=== PATIENT | female | born 1950 | race Caucasian/White ===

== ENCOUNTER 2017-05-27 10:40 | Outpatient (CLI) | payer BC ==
--- NOTE | 2017-05-27 12:39 | RAD ---
CHEST TWO VIEW: HISTORY: Cough. COMPARISON: None. FINDINGS: The heart is mildly prominent. No pneumothorax or effusion. There is scarring in the lung apices. Mild S-shaped scoliosis of the spine. IMPRESSION: 1. The cardiac silhouette is at the upper limits in size. 2. No evidence of pneumonia. POS: [facility]
== END 2017-05-27 10:41 | disposition home or self-care (01) ==
LOC: SCSRAD 10:40
PROVIDERS: ATTEND Family Medicine
DX: J10.1 Influenza due to other identified influenza virus with other respiratory manifestations (principal); I51.7 Cardiomegaly
CPT/HCPCS: 71020

== ENCOUNTER 2020-01-14 11:19 | Inpatient (IN) | payer BC ==
[2020-01-14] MEDS ORDERED: Piperacillin/Tazobactam 3.375 GM in Sodium Chloride 0.9% 100 ML IVPB SCH (12:00)
[2020-01-14] MEDS ORDERED: Ondansetron ODT 4 MG TAB PO PRN (12:20)
[2020-01-14] MEDS ORDERED: Ondansetron PF 4 MG/2 ML Vial IVP PRN (12:20)
--- NOTE | 2020-01-14 13:07 | PDOC.HHP ---
Hospitalist HPI - History of Present Illness Diverticulitis History of Present Illness: Patient reports she developed lower abdominal pain about three months ago. She described it as "pinching, grabbing, stabbing" pain. When it persisted and got worse, she presented to her physician. CT scan confirmed diverticulitis. She was given Cipro and Flagyl. That did not resolve the symptoms and she had some nausea with that. She was then given Augmentin, but that caused nausea and vomiting. She was changed to amoxil and that also caused nausea and vomiting. She did have a follow up CT that appeared to show some improvement and she underwent colonoscopy today with Dr. Arias. He saw diverticulosis with an area of erythema and purulent effluent from the orifice of a diverticulum. She is being admitted for diverticulitis which has failed OP treatment in a patient who cannot tolerate oral abx due to N/V. She does not feel too bad at the moment. She has been able to eat and drink through this. She describes her stools as "greasy" throughout this episode. Hospitalist ROS - Review of Systems Constitutional: denies: fever, chills Respiratory: denies: cough, shortness of breath Gastrointestinal: reports: nausea, vomiting, abdominal pain. denies: diarrhea, constipation All other systems reviewed; all pertinent +/- noted in HPI/Subj Hospitalist History - Past Medical History Source: patient Cardiac: reports: no pertinent history - Past Surgical History Past Surgical History: reports: Hysterectomy - Family History Family History: reports: no pertinent history - Social History Smoking Status: Never smoker Alcohol: reports: None Drugs: reports: none Other Social History: . Full code. would be her surrogate decision maker should that be necessary. - Exam General Appearance: NAD, awake alert Eye: PERRL, anicteric sclera Heart: RRR, no murmur, no gallops, no rubs, normal peripheral pulses Respiratory: CTAB, no wheezes, no rales, no ronchi, normal chest expansion, no tachypnea, normal percussion Gastrointestinal: soft, non-distended, normal bowel sounds, no palpable masses, no hepatomegaly, no splenomegaly, no bruit Gastrointestinal - other findings: Modest TTP in left pelvis. No guarding. Extremities: no cyanosis, no clubbing, no edema Skin: normal turgor, no lesions, no rashes Neurological: no focal deficits Musculoskeletal: normal tone, normal strength, no muscle wasting Psychiatric: normal affect, normal behavior, A&O x 3 Hospitalist H&P A/P - Problem (1) Diverticulitis Code(s): K57.92 - DVTRCLI OF INTEST, PART UNSP, W/O PERF OR ABSCESS W/O BLEED Status: Acute - Plan Plan: Diverticulitis: Failed several attempts at outpatient treatment. Intolerant to oral abx due to N/V. IV Zosyn. She has not had an allergic reaction to PCN, just nausea/vomiting with the pills. Discussed with her nurse. Will need to watch closely after administering the abx for and SE's. IVF. Regular diet with stool softeners. Consult GI.
[2020-01-14] MEDS ORDERED: Iopamidol 370 76% 100 ML VIAL ONE (13:46)
[2020-01-14] MEDS: Sodium Chloride 0.9% 1,000 ML IV SCH (14:02)
[2020-01-14 14:17] VITALS: BMI 28.1
[2020-01-14 14:20] LABS: #Eosinphils 0.1 thou/uL (0.0-0.7); #Lymphocytes 1.5 thou/uL (1.20-3.40); #Monocytes 0.4 thou/uL (0.11-0.59); #Neutrophils 2.7 thou/uL (1.40-6.50); %Basophils 0.7 % (0.0-1.0); %Eosinophils 1.2 % (0.0-10.0); %Lymphocytes 32.1 % (21.0-51.0); %Monocytes 8.8 % (0.0-10.0); %Neutrophils 57.2 % (42.0-75.0); Hemoglobin 14.6 g/dL (12.0-16.0); Mean Corpuscular HGB CONC 33.2 g/dL (32.0-36.0); Mean Corpuscular Hemoglobin 30.4 pg (27.0-31.0); Mean Corpuscular Volume 91.5 fL (78.0-98.0); Mean Platelet Volume 8.1 fL (7.4-10.4); Platelet Count 237 thou/uL (130-400); RBC Distribution Width 13.1 % (11.5-14.5); Red Blood Cell (RBC) Count 4.81 mill/uL (4.20-5.40); White Blood Cell (WBC) Count 4.8 thou/uL (4.8-10.8)
[2020-01-14 14:39] LABS: ALT (SGPT) 23 U/L (8-55); AST (SGOT) 23 U/L (5-34); Albumin 4.4 g/dL (3.4-4.8); Alkaline Phosphatase 72 U/L (40-110); Anion Gap 11 mmol/L (10-20); BUN (Urea Nitrogen) 5 mg/dL (9.8-20.1); Bilirubin, Total 0.6 mg/dL (0.2-1.2); Calc. Creatinine Clearance 82 mL/min (70-130); Calcium 9.3 mg/dL (7.8-10.44); Carbon Dioxide 28 mmol/L (23-31); Chloride 105 mmol/L (98-107); Estimated GFR-MDRD 75; Globulin 3.2 g/dL (2.4-3.5); Glucose 104 mg/dL (80-115); Potassium 3.8 mmol/L (3.5-5.1); Protein, Total 7.6 g/dL (6.0-8.3); Sodium 140 mmol/L (136-145)
[2020-01-14] MEDS ORDERED: Clindamycin/D5W 900 MG in Premix Bag 1 BAG IVPB SCH (17:00)
[2020-01-14] MEDS ORDERED: cefTRIAXone\\ROCEPHIN 1 GM in Sodium Chloride 0.9% 100 ML IVPB SCH (18:00)
--- NOTE | 2020-01-14 18:23 | PDOC.EVN ---
Event Note - Event Note Event Note: Patient seen by Dr. Jean who advised to continue with Zosyn. RN notified. Only 5mLs of Clindamycin infused. She did not receive Rocephin. Both have been discontinued. Zosyn due at 20:00 (last dose at 14:00). Dr. Olivas aware of plan as above.
--- NOTE | 2020-01-14 18:35 | CON ---
DATE OF CONSULTATION: 01/14/2020 REASON FOR CONSULTATION: Acute uncomplicated diverticulitis. CONSULTING PROVIDER: Blane Olivas MD HISTORY OF PRESENT ILLNESS: The patient is a 69-year-old female with no significant past medical history until her diagnosis of diverticulitis a few months ago, presenting with complaints of lower abdominal pain and abnormal GI imaging. She states that she began having increased left lower quadrant abdominal pain, that started in 06/2019. The pain was initially intermittent, characterized as a sharp/stabbing type sensation and did not radiate to the remainder of the abdomen. However, in 11/2019, she had acute worsening of this left lower quadrant abdominal pain, that prompted her to seek additional healthcare assistance at [facility]. There, she was initially diagnosed with diverticulitis based on CT imaging showing the presence of the condition. She was subsequently placed on ciprofloxacin and Flagyl, but the patient was unable to tolerate the regimen secondary to nausea and vomiting associated with these medications. She was subsequently changed to Augmentin, but again had adverse reactions including nausea and vomiting. Ultimately, recently, she was changed to amoxicillin, but again also this caused nausea and vomiting. On repeat evaluation in the GI Clinic, she continued to have abdominal pain, but now located in the right lower quadrant, and with the knowledge of a recent CT obtained at [facility] showing resolution of her diverticulitis, she subsequently underwent colonoscopy on 01/14/2020. During that particular procedure, she has significant diverticulosis located all through her colon with an increased density of the diverticula seen in the descending and sigmoid colons; however, in the sigmoid colon, one particular diverticulum was noted to have purulence emanating from the diverticulum itself as well as peridiverticular erythema and edema consistent with acute diverticulitis. With her failures to most outpatient regimens secondary to adverse reactions of nausea and vomiting, she was then admitted to the hospital for IV management of this condition. Currently, she states that she is doing well with no acute events or problems. However, she states that with the earlier administration of Zosyn, she had an increasing pressure type sensation in her upper chest and throat without the sensation of shortness of breath, and shortly after the onset of these symptoms, she began to have involuntary shaking of her entire body for the next hour, which then slowly resolved. Otherwise, she denies any nausea, vomiting, fevers, chills, hematemesis, melena, hematochezia, diarrhea, constipation, or weight loss. REVIEW OF SYSTEMS: A 10-category review of systems was obtained with all responses negative except for the pertinent positives as listed in HPI. PAST MEDICAL HISTORY: Diverticulitis. PAST SURGICAL HISTORY: Transvaginal hysterectomy. FAMILY HISTORY: Denies any GI malignancies. SOCIAL HISTORY: Denies any tobacco, alcohol, or illicit drug use. OUTPATIENT MEDICATIONS: Reviewed. ALLERGIES: NO KNOWN DRUG ALLERGIES. PHYSICAL EXAMINATION: VITAL SIGNS: Temperature 97.6, pulse 85, blood pressure 140/63, respiratory rate 18, and saturating 99% on room air. GENERAL: The patient was lying in bed, in no acute distress. Alert and oriented x4. HEENT: Normocephalic and atraumatic. Neck is supple. No JVD or scleral icterus noted. CARDIOVASCULAR: Regular rate and rhythm with no discernable murmurs, gallops, or rubs. RESPIRATORY: Clear to auscultation bilaterally with no discernable wheezes or rales. ABDOMEN: Normoactive bowel sounds. Soft, nondistended. Mild tenderness to palpation in the left upper quadrant. EXTREMITIES: No cyanosis, clubbing, or edema. LABORATORY DATA: CBC with a white blood cell count of 4.8, hemoglobin 14.6, hematocrit 44, and platelets 237. Chemistry with a sodium of 140, potassium 3.8, chloride 105, CO2 of 28, BUN 5, creatinine 0.76, and glucose 104. AST 23, ALT 23, alkaline phosphatase 72, total bilirubin 0.6, and albumin 4.4. IMAGING DATA: The patient underwent colonoscopy on 01/14/2020, which showed moderately severe pancolonic diverticulosis with evidence of diverticular spasm, peridiverticular erythema and edema in the sigmoid colon as well as purulent discharge from one particular diverticular opening, consistent with acute diverticulitis. ASSESSMENT AND PLAN: The patient is a 69-year-old female with past medical history of diverticulitis, presenting with continued uncomplicated diverticulitis. [id number] diverticulitis: The patient is presenting with a longstanding history of lower abdominal pain since 06/2019, for which the patient underwent CT scans of her abdomen in 11/2019, showing the presence of acute uncomplicated diverticulitis. She was subsequently placed on multiple appropriate antibiotic regimens, but could not tolerate any of these regimens due to significant nausea and vomiting associated with administration. She has had some clinical improvement with the most recent antibiotics, but colonoscopy earlier today showed the presence of purulence as well as peridiverticular erythema and narrowing of the colon, consistent with acute diverticulitis. At this time, given her failure to regimens including Cipro/Flagyl, Augmentin, amoxicillin/Flagyl, the patient would benefit from IV administration of antibiotics. However, earlier today, she experienced what appears to be an adverse reaction with administration of Zosyn, for which she has had similar reactions to amoxicillin in the past. At this point, it is unclear if this is an adverse effect versus a true allergic reaction to the medication. RECOMMENDATIONS: 1. Would continue with one additional dose of Zosyn 3.375 g and monitor the patient during administration for blood pressure, oxygen saturation, and any post-administrative reactions (for example, involuntary shaking). 2. If the patient has a reaction to the Zosyn, would transfer the patient to Bactrim 1 double-strength tablet b.i.d. plus metronidazole 500 mg t.i.d. or consider transferring the patient to meropenem 1 g every 8 hours. 3. Pain control per primary team. 4. Agree with placing the patient on a clear liquid diet and advancing as tolerated. 5. Continue IV fluid at 75 mL/hour as part of supplementation. We will continue to follow. Please call with any questions. Job ID: [id number]
--- NOTE | 2020-01-14 19:13 | CT ---
CT OF THE ABDOMEN AND PELVIS WITH IV CONTRAST INDICATION: Diverticulitis COMPARISON: None FINDINGS: ABDOMEN: Lung bases: Bibasilar atelectasis Liver: No focal lesion. Gallbladder: Normal appearing. Pancreas: Normal. Adrenal glands: Normal. Spleen: Normal. Kidneys and ureters: Normal. No hydronephrosis. Vasculature: There are mild vascular calcifications seen involving the visualized vasculature. Lymph nodes:No lymphadenopathy. Free fluid in abdomen:No free fluid is evident. PELVIS: Small and large bowel: There is colonic diverticula involving the sigmoid colon and distal descending colon with mild wall thickening and mild pericolonic inflammatory stranding. No drainable fluid collection is evident. Small bowel is of normal caliber. Appendix:Normal Bladder: Normal. Rectal and perirectal soft tissues:Normal. Reproductive structures: The uterus is not identified and may be surgically absent. Free fluid in pelvis: No free fluid is evident. Lymphadenopathy pelvis: No lymphadenopathy is evident. Osseous structures: There is diffuse osteopenia. No acute fracture or subluxation demonstrated. Ther e is scattered degenerative and osteoarthritic changes. Soft tissues:Normal. IMPRESSION: 1. Uncomplicated sigmoid and distal descending diverticulitis. No drainable fluid collection demonstr ated.
[2020-01-14] MEDS ORDERED: diphenhydrAMINE 50 MG/ML VIAL IVP PRN (20:00)
[2020-01-14] MEDS: Piperacillin/Tazobactam 3.375 GM in Sodium Chloride 0.9% 100 ML IVPB SCH (21:22)
[2020-01-15] MEDS: Piperacillin/Tazobactam 3.375 GM in Sodium Chloride 0.9% 100 ML IVPB SCH ×4 (03:17→20:10)
[2020-01-15] MEDS: Sodium Chloride 0.9% 1,000 ML IV SCH ×2 (03:19→15:19)
[2020-01-15] MEDS ORDERED: diphenhydrAMINE 50 MG/ML VIAL IVP SCH (03:30)
--- NOTE | 2020-01-15 06:06 | CON ---
DATE OF CONSULTATION: HISTORY OF PRESENT ILLNESS: Ms. Mckeon is a pleasant 69-year-old female, who I saw today in my office for a screening colonoscopy. She last had one about 10 years ago, which was normal. In the interim, she had had a bout of diverticulitis about 3 months ago in [place], where she now lives. This apparently was confirmed with a CAT scan. She was treated with antibiotics and then treated a couple of different times, but she really did not tolerate Flagyl, Augmentin or Cipro. She had persistent on and off pain and just malaise, and she had a rheumatologic workup at [facility] in [place], it was normal and then she had a CAT scan on January 09 that was normal. Apparently she was getting very nauseated with the Augmentin and even amoxil, could not tolerate that. More recently, she had been seen in our office and was having some mild tenderness, but again the CAT scan had been completely normal. She had had no fever or chills. Ultimately, a colonoscopy was performed and showed diverticulosis with an area of diverticulitis in the distal colon. We are going to retreat her as an outpatient, try to use different oral antibiotics, but in her difficulty with treatment and 3 other treatments as an outpatient with other physicians, but considered this a failed outpatient therapy. After endoscopy, she was a little bit more uncomfortable than before, but she could get up and walk around to the bathroom. She has had no dysuria, frequency, urgency, or any solid material in the urine. She has reported that her stools greasy Her CAT scan shows no pancreatic malignancy PAST MEDICAL HISTORY: Difficulty sleeping. PAST SURGICAL HISTORY: Hysterectomy. ALLERGIES: SHE DOES NOT HAVE ANY OVERT ANAPHYLACTIC LIKE ALLERGIES TO ANY MEDICINES. SHE DOES GET NAUSEA WITH FLAGYL AND WITH AMOXICILLIN. ALLERGIES TO SHELLFISH. SHE DID HAVE RECENT LEADITE HEATER EVALUATION WITH TRANSVAGINAL ULTRASOUND MEDICATIONS AT HOME: Ambien. SOCIAL HISTORY: Alcohol, none. Does not smoke. Exercises a few times per week. She works at the [employer] in [place], previously worked . FAMILY HISTORY: Negative for inflammatory bowel disease or colitis. REVIEW OF SYSTEMS: Negative for chest pain, shortness of breath, dyspnea on exertion, fever, chills, myalgias, or arthralgias. PHYSICAL EXAMINATION: VITAL SIGNS: weight 172. Respirations 16. GENERAL: She appears a little bit sallow HEENT: Oropharynx is moist. NECK: Supple. LUNGS: Clear. HEART: Regular, ABDOMEN: Mild tenderness in left lower quadrant without rebound or guarding. She is able to walk around without overt discomfort. EXTREMITIES: No clubbing, cyanosis, or edema. ASSESSMENT: Failed outpatient treatment with diverticulitis, on and off, oral antibiotics with incomplete courses for the last three months. She had a normal CAT scan in early December, but has a colonoscopy with findings of acute diverticulitis now. PLAN: We will admit her to the hospital, start on IV antibiotics. Re-image her abdomen to make sure there is no abscess or phlegmon and proceed from there. Dr. Brooke is the hospital I have discussed the case with the admitting physician. Job ID: [id number]
[2020-01-15 06:23] LABS: #Eosinphils 0.1 thou/uL (0.0-0.7); #Lymphocytes 1.4 thou/uL (1.20-3.40); #Monocytes 0.4 thou/uL (0.11-0.59); #Neutrophils 2.5 thou/uL (1.40-6.50); %Basophils 0.7 % (0.0-1.0); %Eosinophils 2.7 % (0.0-10.0); %Lymphocytes 30.9 % (21.0-51.0); %Monocytes 9.2 % (0.0-10.0); %Neutrophils 56.5 % (42.0-75.0); Hemoglobin 13.3 g/dL (12.0-16.0); Mean Corpuscular HGB CONC 32.6 g/dL (32.0-36.0); Mean Corpuscular Hemoglobin 30.1 pg (27.0-31.0); Mean Corpuscular Volume 92.1 fL (78.0-98.0); Mean Platelet Volume 7.8 fL (7.4-10.4); Platelet Count 189 thou/uL (130-400); RBC Distribution Width 13.1 % (11.5-14.5); Red Blood Cell (RBC) Count 4.42 mill/uL (4.20-5.40); White Blood Cell (WBC) Count 4.5 thou/uL (4.8-10.8)
[2020-01-15 06:44] LABS: ALT (SGPT) 18 U/L (8-55); AST (SGOT) 18 U/L (5-34); Albumin 3.8 g/dL (3.4-4.8); Alkaline Phosphatase 59 U/L (40-110); Anion Gap 10 mmol/L (10-20); BUN (Urea Nitrogen) 6 mg/dL (9.8-20.1); Bilirubin, Total 0.8 mg/dL (0.2-1.2); Calc. Creatinine Clearance 76 mL/min (70-130); Calcium 8.6 mg/dL (7.8-10.44); Carbon Dioxide 28 mmol/L (23-31); Chloride 107 mmol/L (98-107); Estimated GFR-MDRD 69; Globulin 2.7 g/dL (2.4-3.5); Glucose 98 mg/dL (80-115); Potassium 3.8 mmol/L (3.5-5.1); Protein, Total 6.5 g/dL (6.0-8.3); Sodium 141 mmol/L (136-145)
[2020-01-15] MEDS: Enoxaparin Sodium 40 MG/0.4 ML SYRINGE SC SCH (08:11)
--- NOTE | 2020-01-15 11:24 | PDOC.HOSPP ---
- Subjective Encounter Date: 01/15/20 Encounter Time: 11:00 Subjective: no abd pain or nausea is tolerating liq diet - Objective Vital Signs & Weight: Vital Signs (12 hours) Temp Pulse Resp BP BP Pulse Ox 01/15/20 08:00 97.8 F 70 16 127/74 96 01/15/20 07:21 98 01/15/20 03:59 98.4 F 66 16 121/63 97 01/14/20 23:52 98.7 F 70 16 121/58 L 96 Weight Weight 164 lb I&O: 01/14/20 01/15/20 01/16/20 06:59 06:59 06:59 Intake Total 1100 1320 Output Total 500 Balance 1100 820 Result Diagrams: 01/15/20 06:01 01/15/20 06:01 Hospitalist ROS - Medication Medications: Active Medications Generic Name Dose Route Start Last Admin Trade Name Freq PRN Reason Stop Dose Admin Diphenhydramine HCl 25 mg 01/14/20 20:00 01/14/20 20:29 Benadryl IVP 25 mg Q8H PRN Administration BEFORE ZOSYN Enoxaparin Sodium 40 mg 01/15/20 09:00 01/15/20 08:11 Lovenox SC Not Given 0900 CATHLEEN Sodium Chloride 1,000 mls @ 75 mls/hr 01/14/20 12:30 01/15/20 03:19 Normal Saline 0.9% IV 1,000 mls .[id number] CATHLEEN Administration Piperacillin Sod/Tazobactam 100 mls @ 200 mls/hr 01/14/20 20:00 01/15/20 08: 10 Sod 3.375 gm/ Sodium Chloride IVPB 100 mls 0200,0800,1400,2000 CATHLEEN Administration - Exam General Appearance: awake alert Eye: PERRL, anicteric sclera ENT: no oropharyngeal lesions, moist mucosa Neck: supple, no JVD Heart: RRR, no murmur Respiratory: no wheezes, no rales Gastrointestinal: soft, non-tender, non-distended, normal bowel sounds, no guarding, no rigidity Extremities: no cyanosis, no edema Neurological: cranial nerve grossly intact, no focal deficits Psychiatric: normal affect, A&O x 3 Hosp A/P (1) Abdominal pain Code(s): R10.9 - UNSPECIFIED ABDOMINAL PAIN Status: Resolved Qualifiers: Abdominal location: unspecified location Qualified Code(s): R10.9 - Unspecified abdominal pain (2) Diverticulitis Code(s): K57.92 - DVTRCLI OF INTEST, PART UNSP, W/O PERF OR ABSCESS W/O BLEED Status: Acute - Plan is on zosyn gentle iv fluids may advance diet per GI advice to amb in hallway as tolerated is passing liq stools (colon prep?) hemostable
--- NOTE | 2020-01-15 11:56 | PRG ---
DATE OF SERVICE: 01/15/2020 SUBJECTIVE: Ms. Mckeon is feeling better. She was able to tolerate the IV antibiotic without any nausea, vomiting, or dizziness. She has been . She wants to advance her diet. She is on clear liquids. She is having mucousy yellow stool. OBJECTIVE: VITAL SIGNS: Temperature 97, pulse 70, blood pressure 127/74. ABDOMEN: Soft. Mild tender left lower quadrant. No rebound. No guarding. LABORATORY DATA: White count 4.5, hemoglobin 13, platelet count is normal. Comprehensive metabolic profile is normal. CAT scan did show diverticulitis without any evidence of abscess. ASSESSMENT: Recurrent diverticulitis over the past 3 months. She has been really unable to tolerate Augmentin or p.o. Flagyl. She had reported severe vomiting with Augmentin and Flagyl makes her dizzy, so she has had incomplete therapies. She had a normal CAT scan in early December around the 5th at [facility] as soon as her disease is resolved. She had recurrent discomfort and endoscopy yesterday had signs of diverticulitis in the sigmoid colon. CAT scan here showed the same with no signs of perforation. RECOMMENDATIONS: 1. Continue IV Zosyn until tomorrow. If she continues to improve in the way she feels, maybe switch tomorrow to p.o. fluoroquinolone and Flagyl 250 q.i.d. with food with p.r.n. Zofran as needed for nausea. If she can tolerate that, she can go home with that regimen. She is going to need to have anaerobic coverage with oral medicines when she goes home. I think that is why she has kept flaring. 2. We will advance diet. Dr. Jeremy Brooke is covering over the weekend. Job ID: [id number]
[2020-01-15] MEDS: Zolpidem Tartrate 5 MG TAB PO PRN (21:39)
[2020-01-16] MEDS: Piperacillin/Tazobactam 3.375 GM in Sodium Chloride 0.9% 100 ML IVPB SCH (02:15)
[2020-01-16] MEDS: Sodium Chloride 0.9% 1,000 ML IV SCH ×2 (07:05→19:13)
[2020-01-16] MEDS: Enoxaparin Sodium 40 MG/0.4 ML SYRINGE SC SCH (09:09)
[2020-01-16] MEDS: Saccharomyces boulardii 250 MG CAP PO SCH (09:09)
[2020-01-16] MEDS: metroNIDAZOLE 250 MG TAB PO SCH ×4 (09:10→21:20)
--- NOTE | 2020-01-16 11:39 | PDOC.HOSPP ---
- Subjective Encounter Date: 01/16/20 Encounter Time: 10:30 Subjective: no abd pain or nausea feels better, is tolerating liq diet - Objective Vital Signs & Weight: Vital Signs (12 hours) Temp Pulse Resp BP Pulse Ox 01/16/20 08:00 98.2 F 76 16 139/81 97 Weight Weight 164 lb I&O: 01/15/20 01/16/20 01/17/20 06:59 06:59 06:59 Intake Total 1100 3420 1368 Output Total 500 900 Balance 1100 2920 468 Result Diagrams: 01/15/20 06:01 01/15/20 06:01 Hospitalist ROS - Medication Medications: Active Medications Generic Name Dose Route Start Last Admin Trade Name Freq PRN Reason Stop Dose Admin Diphenhydramine HCl 25 mg 01/14/20 20:00 01/14/20 20:29 Benadryl IVP 25 mg Q8H PRN Administration BEFORE ZOSYN Enoxaparin Sodium 40 mg 01/15/20 09:00 01/16/20 09:09 Lovenox SC Not Given 0900 CATHLEEN Sodium Chloride 1,000 mls @ 75 mls/hr 01/14/20 12:30 01/16/20 07:05 Normal Saline 0.9% IV 1,000 mls .[id number] CATHLEEN Administration Metronidazole 250 mg 01/16/20 09:00 01/16/20 09:10 Flagyl PO 250 mg QID CATHLEEN Administration Saccharomyces Boulardii 250 mg 01/16/20 09:00 01/16/20 09:09 Florastor PO Not Given DAILY CATHLEEN Sodium Chloride 10 ml 01/16/20 09:00 01/16/20 09:11 Flush - Normal Saline IVF 10 ml Q12HR CATHLEEN Administration Zolpidem Tartrate 5 mg 01/14/20 13:02 01/15/20 21:39 Ambien PO 5 mg HSPRN PRN Administration Insomnia - Exam General Appearance: awake alert Eye: PERRL, anicteric sclera ENT: no oropharyngeal lesions, moist mucosa Neck: supple, no JVD Heart: RRR, no murmur Respiratory: no wheezes, no rales Gastrointestinal: soft, non-tender, non-distended, normal bowel sounds, no guarding, no rigidity Extremities: no cyanosis, no edema Neurological: cranial nerve grossly intact, no focal deficits Psychiatric: normal affect, A&O x 3 Hosp A/P (1) Abdominal pain Code(s): R10.9 - UNSPECIFIED ABDOMINAL PAIN Status: Resolved Qualifiers: Abdominal location: unspecified location Qualified Code(s): R10.9 - Unspecified abdominal pain (2) Diverticulitis Code(s): K57.92 - DVTRCLI OF INTEST, PART UNSP, W/O PERF OR ABSCESS W/O BLEED Status: Acute - Plan is on cipro and flagyl qid per advice gentle iv fluids advance diet to heart healthy to amb in hallway as tolerated DC plan in am if stable hemostable
[2020-01-16] MEDS ORDERED: traMADol HCl 50 MG TAB PO PRN (13:09)
[2020-01-16] MEDS ORDERED: Acetaminophen 325 MG TAB PO PRN (13:09)
--- NOTE | 2020-01-16 13:10 | PRG ---
DATE OF SERVICE: 01/16/2020 REASON FOR CONSULTATION: Acute uncomplicated diverticulitis. SUBJECTIVE: The patient did not experience any acute events or problems overnight. She was able to tolerate the IV Zosyn without any further difficulties or shortness of breath/rigors. She does have some mild nausea associated with the administration of metronidazole, but has not resulted in a vomiting. Currently, denies any fevers, chills, hematemesis, melena, hematochezia, or abdominal pain. She did have approximately 1 to 2 bowel movements yesterday that were semi-solid to liquid in consistency, but she has not been started on a solid diet just yet. OBJECTIVE: VITAL SIGNS: Temperature 98.2, pulse 76, blood pressure 139/81, respiratory rate 16, saturating 97% on room air. GENERAL: The patient was lying in bed, in no acute distress. Alert and oriented x4. CARDIOVASCULAR: Regular rate and rhythm. RESPIRATORY: Clear to auscultation bilaterally. ABDOMEN: Normoactive bowel sounds. Soft, nontender, and nondistended. EXTREMITIES: No cyanosis, clubbing, or edema. LABORATORY DATA: No current studies are available for review. IMAGING DATA: No current imaging is available for review. ASSESSMENT AND PLAN: The patient is a 69-year-old female with past medical history of diverticulitis, presenting with an acute uncomplicated diverticulitis. 1. [id number]-yq-[id number] diverticulitis: The patient initially presented with lower abdominal pain since June 2019, with CT scan ultimately in November of 2019, showing the presence of acute uncomplicated diverticulitis. She was placed on multiple antibiotic regimens for treatment of this condition, but could not complete any of these regimens due to significant nausea and vomiting. On colonoscopy on January 14, 2020, there was evidence of purulence emanating from one of the diverticula during that examination consistent with continued inflammation/infection. She was subsequently placed on Zosyn during this admission and did have some chest pressure and shaking chills with administration initially, but has not had any additional episodes since then (currently on day 3 of IV antibiotics). At this time, she is responding well to IV antibiotic administration and has had complete resolution of her abdominal pain. As such, she was subsequently transferred to oral ciprofloxacin and Flagyl and has been having some mild nausea associated with the dosing of the Flagyl, but is tolerating the ciprofloxacin well. 2. Recommendations: a. We would continue ciprofloxacin and Flagyl as part of antibiotic regimen for the diverticulitis. We would continue the metronidazole at 250 mg 4 times daily to avoid any additional episodes of nausea/vomiting. b. Pain control per primary team. c. We would advance the patient's diet as tolerated. Given her response to IV antibiotics and good clinical status, she could be potentially discharged to home today after a few more doses of the metronidazole to ensure the patient does not have any further episodes of vomiting. We will sign off at this time. Please call with any questions. Job ID: [id number]
[2020-01-16] MEDS: Ciprofloxacin 500 MG TAB PO SCH (20:13)
[2020-01-16] MEDS: Zolpidem Tartrate 5 MG TAB PO PRN (22:03)
[2020-01-17] MEDS: Ciprofloxacin 500 MG TAB PO SCH (06:18)
[2020-01-17 07:49] VITALS: BP 133/82; TEMP 96.7
[2020-01-17] MEDS: Enoxaparin Sodium 40 MG/0.4 ML SYRINGE SC SCH (09:06)
[2020-01-17] MEDS: Saccharomyces boulardii 250 MG CAP PO SCH (09:06)
[2020-01-17] MEDS: metroNIDAZOLE 250 MG TAB PO SCH (09:09)
--- NOTE | 2020-01-17 15:17 | DIS ---
DATE OF ADMISSION: 01/14/2020 DATE OF DISCHARGE: 01/17/2020 DISCHARGE DISPOSITION: To home. PRIMARY DISCHARGE DIAGNOSIS: Diverticulitis with abdominal pain. PROCEDURES DONE DURING HOSPITALIZATION: Abdominal and pelvic CAT scan with contrast done showed uncomplicated sigmoid and distal descending diverticulitis. No drainable fluid collection was seen. H and H 13 and 40, platelet count 189, BUN 6, creatinine 0.8. Liver enzymes within normal limits. Albumin 3.8. DISCHARGE MEDICATIONS: Ciprofloxacin 500 mg p.o. twice daily for 10 days; Flagyl 250 mg p.o. 4 times daily for 10 days; Ambien 5 mg p.o. at bedtime p.r.n. for insomnia. ALLERGIES: SULFA. DISCHARGE PLAN: The patient to follow up with her primary care physician in 1 week. She also needs to follow up with Dr. Arias in 2 weeks. BRIEF COURSE DURING HOSPITALIZATION: The patient initially got admitted on the with failed outpatient antibiotic treatment for diverticulitis. In view of the patient's ongoing abdominal pain and CAT scan revealing sigmoid and descending diverticulitis, the patient was admitted to medical floor. She was placed on broad-spectrum IV antibiotics and has been transitioned to ciprofloxacin and Flagyl low-dose 4 times daily. She has recovered well with her abdominal pain. She is tolerating oral solid diet. She is ambulating in the room. She has been cleared for discharge by Dr. Brooke. The patient needs to follow up with Dr. Arias in 2 to 3 weeks and her primary care physician in 1 week. Please note I have seen and examined the patient on the day of discharge. Job ID: [id number]
== END 2020-01-17 11:20 | disposition home or self-care (01) | DRG 392 ==
LOC: ONC 11:19
PROVIDERS: ADMIT Family Medicine; ATTEND Family Medicine
DX: K57.32 Diverticulitis of large intestine without perforation or abscess without bleeding (principal); Z90.710 Acquired absence of both cervix and uterus; Z88.8 Allergy status to other drugs, medicaments and biological substances; Z88.1 Allergy status to other antibiotic agents; Z91.013 Allergy to seafood; Z79.899 Other long term (current) drug therapy
CPT/HCPCS: 36415; 74177; 80053; 85025; J1200; J2543; J3490; Q9967